=== PATIENT | female | born 1980 | race Caucasian/White ===

== ENCOUNTER 2018-01-12 21:52 | Outpatient (CLI) | payer MEDICAID | END 2018-01-12 21:53 | disposition critical access hospital (66) | LOC: EMS 21:52 | PROVIDERS: ATTEND Surgery | DX: H92.03 Otalgia, bilateral (principal); M25.562 Pain in left knee; M25.511 Pain in right shoulder | CPT/HCPCS: A0425; A0429 ==

== ENCOUNTER 2018-01-12 22:27 | Emergency (ER) | payer MEDICAID ==
[2018-01-12 22:34] VITALS: BP 101/65
[2018-01-13] MEDS ORDERED: BACITRACIN OINT TOP STA (03:12)
--- NOTE | 2018-01-13 20:31 | ED Physician Documentation ---
History of Present Illness - Stated complaint Stated Complaint: ETOH/EAR PAIN - Chief complaint Chief Complaint: General - History obtained from History obtained from: Patient, Friend, EMS - History of Present Illness Timing: Unknown Pain level now: 0 - Additonal information Additional information: polina LEY historian. her chief concerns are 1)bilateral ear pain for which she feels she needs an antibiotic 2) knee pain for which she is requesting an MARII wrap and 3) right eyebrow abrasion. she says they did an xray (of her knee at [facility] (she was there two nights ago and again last night)). she does not recall specific injury. Review of Systems Cardiac: reports: Reviewed and negative Respiratory: reports: Reviewed and negative GI: reports: Reviewed and negative Musculoskeletal: reports: Joint pain PD PAST MEDICAL HISTORY - Past Medical History Past Medical History: No - Past Surgical History Past Surgical History: No - Present Medications Home Medications: Ambulatory Orders Medication Instructions Recorded Confirmed Azithromycin [Zithromax] 250 mg PO DAILY #4 tablet 01/13/18 - Allergies Allergies/Adverse Reactions: Allergies Allergy/AdvReac Type Severity Reaction Status Date / Time buprenorphine HCl * AdvReac Unknown Verified 08/21/14 11:54 [From Suboxone] naloxone HCl * AdvReac Unknown Verified 08/21/14 11:54 [From Suboxone] - Social History Does the pt smoke?: Yes Smoking Status: Current every day smoker Does the pt drink ETOH?: No Does the pt have substance abuse?: No - Immunizations Immunizations are current?: No Immunizations: TDAP >10years/unknown PD ED PE NORMAL - Vitals Vital signs reviewed: Yes - General General: No acute distress, Well developed/nourished, Other (drowsy, repeatedly falls asleep during HPI) - HEENT HEENT: PERRL, EOMI, Ears normal, Moist mucous membranes, Other (superficial abrasion right supraorbit without tenderness, swelling, or erythema) - Neck Neck: No bony TTP - Cardiac Cardiac: RRR, No murmur - Respiratory Respiratory: No respiratory distress, Clear bilaterally - Derm Derm: Normal color, Warm and dry - Extremities Extremities: No deformity, No tenderness to palpate, Normal ROM s pain, No edema Results - Vitals Vitals: Vital Signs - 24 hr 01/12/18 22:30 Temperature 37.0 C Heart Rate 92 Respiratory 16 Rate Blood Pressure 101/65 O2 Saturation 97 Oxygen O2 Source Room air PD MEDICAL DECISION MAKING - ED course Complexity details: reviewed old records (reviewed records that were faxed to me from [facility] regarding ED visits yesterday and previous day. she had unremarkable blood tests and negative test, was held for SW consult pending sobriety on first visit. I do not see the outcome of the SW consult, but she returned the next night and was T+R for knee sprain; no xray was performed. ), re-evaluated patient, considered differential, d/w patient ED course: patient was very drowsy on initial evaluation. reevaluated and she was awake, alert and this is when she was able to provide the chief complaints noted in my HPI. of note, patient was last in [facility] 07/2014 at which time I was her ED physician. at that time she thought both her legs were broken despite no injury and, although initially relieved and reassured that her exam did not suggest any injury, she eventually needed to be removed from ED by police due to refusal to leave despite no medical c/o. On tonights visit, after discharge, patients friend called 911 from ED waiting room, saying that they were being forced to leave despite both of them being . They were eventually taken off premises by police. Departure - Departure Disposition: 01 Home, Self Care Clinical Impression: Left knee sprain Qualifiers: Encounter type: initial encounter Involved ligament of knee: unspecified ligament Qualified Code(s): S83.92XA - Sprain of unspecified site of left knee, initial encounter Condition: Good Instructions: ED Bandage Elastic Wrap, ED Sprain Knee Follow-Up: [facility] [Provider Group] [facility] [Provider Group] Discharge Date/Time: 01/13/18 03:34
== END 2018-01-13 03:34 | disposition home or self-care (01) ==
LOC: EDUNIT# → ED 22:27
DX: S83.92XA Sprain of unspecified site of left knee, initial encounter (principal); X50.1XXA Overexertion from prolonged static or awkward postures, initial encounter; F17.200 Nicotine dependence, unspecified, uncomplicated
CPT/HCPCS: 99282; 99283

== ENCOUNTER 2018-01-13 10:37 | Outpatient (CLI) | payer MEDICAID | END 2018-01-13 10:38 | disposition critical access hospital (66) | LOC: EMS 10:37 | PROVIDERS: ATTEND Surgery | DX: R40.20 Unspecified coma (principal); Z72.89 Other problems related to lifestyle | CPT/HCPCS: A0425; A0429 ==

== ENCOUNTER 2018-01-13 10:55 | Emergency (ER) | payer MEDICAID ==
[2018-01-13] MEDS ORDERED: MULTIVITAMIN 10 ML in SODIUM CHLORIDE 0.9% 1,000 ML IV STA (11:13)
[2018-01-13] MEDS ORDERED: MAGNESIUM SULFATE 2 GRAM 2 GM/50 ML BAG IV STA (11:13)
[2018-01-13] MEDS ORDERED: THIAMINE INJ 100 MG, FOLIC ACID INJ 1 MG in SODIUM CHLORIDE 0.9% 100ML 100 ML IV STA (11:13)
--- NOTE | 2018-01-13 11:16 | ED Physician Documentation ---
PD HPI ALTERED MENTAL STATUS - Stated complaint Stated Complaint: MHE - Chief complaint Chief Complaint: Neuro - History obtained from History obtained from: Patient, EMS - History of Present Illness Timing - onset: Today Timing - duration: Hours Timing - details: Gradual onset, Still present Quality / character: Less responsive Associated symptoms: Cough, Other (ear pain) Contributing factors: Intoxicated, Substance abuse, Known psych illness Basline status: Alert and oriented X 3, Ambulatory, Independent Similar symptoms before: Diagnosis (substance abuse/EOTH) Recently seen: Emergency Dept - Additional information Additional information: 37-year-old homeless female unable to give us any specific history [place] [facility] [place]. They have transported the patient to the emergency department. She does smell heavily of alcohol and answers questions appropriately when she wakes up. She rapidly falls back to sleep. She was seen in the emergency department last night for a knee sprain and was not discharged with medications. She has on her KODY form , recent visits to [place] X 2 in the past 3 days. Review of Systems Unable to obtain: Intoxicated Constitutional: denies: Fever Ears: reports: Ear pain Nose: reports: Rhinorrhea / runny nose, Congestion Throat: denies: Sore throat Cardiac: denies: Chest pain / pressure, Palpitations Respiratory: reports: Cough. denies: Dyspnea GI: denies: Vomiting : denies: Dysuria, Frequency Skin: denies: Rash Musculoskeletal: denies: Neck pain, Back pain, Extremity pain Neurologic: denies: Generalized weakness, Focal weakness, Numbness PD PAST MEDICAL HISTORY - Past Medical History Past Medical History: Yes Other Past Medical History: etoh - Past Surgical History Past Surgical History: No - Present Medications Home Medications: Ambulatory Orders Medication Instructions Recorded Confirmed Azithromycin [Zithromax] 250 mg PO DAILY #4 tablet 01/13/18 - Allergies Allergies/Adverse Reactions: Allergies Allergy/AdvReac Type Severity Reaction Status Date / Time buprenorphine HCl * AdvReac Unknown Verified 08/21/14 11:54 [From Suboxone] naloxone HCl * AdvReac Unknown Verified 08/21/14 11:54 [From Suboxone] - Social History Does the pt smoke?: Yes Smoking Status: Current every day smoker Does the pt drink ETOH?: No Does the pt have substance abuse?: No - Immunizations Immunizations are current?: No Immunizations: TDAP >10years/unknown PD ED PE NORMAL - Vitals Vital signs reviewed: Yes (hypotensive ) - General General: No acute distress, Well developed/nourished, Other (37 y/o female with strong odor of ETOH. arouses to voice and falls asleep easily. ) - HEENT HEENT: PERRL, EOMI, Other (There is an abrasion to the left scalp over the frontal area. Both TM's are mildly inflamed. ) - Neck Neck: Supple, no meningeal sign, No bony TTP - Cardiac Cardiac: RRR, No murmur - Respiratory Respiratory: No respiratory distress, Clear bilaterally - Abdomen Abdomen: Soft, Non tender - Back Back: No CVA TTP, No spinal TTP - Derm Derm: Normal color, Warm and dry, No rash - Extremities Extremities: No deformity, No edema - Neuro Neuro: No motor deficit, No sensory deficit, Normal speech Eye Opening: Spontaneous Motor: Obeys Commands Verbal: Oriented GCS Score: 15 - Psych Psych: Normal mood, Normal affect Results - Vitals Vitals: Vital Signs - 24 hr 01/13/18 01/13/18 01/13/18 10:56 13:26 17:54 Temperature 35.8 C L 37.4 C Heart Rate 76 69 78 Respiratory 16 15 14 Rate Blood Pressure 84/53 L 87/61 L 90/64 O2 Saturation 99 99 01/13/18 20:05 Temperature Heart Rate 96 Respiratory 18 Rate Blood Pressure 101/71 O2 Saturation 96 Oxygen O2 Source Room air - Labs Labs: Laboratory Tests 01/13/18 01/13/18 01/13/18 11:30 11:30 13:17 WBC 7.1 RBC 4.02 L Hgb 13.0 Hct 39.7 MCV 98.7 MCH 32.3 H MCHC 32.7 RDW 15.1 H Plt Count 342 MPV 6.5 L Neut # 3.8 Lymph # 2.7 Randall # 0.4 Eos # 0.0 Baso # 0.0 Absolute Nucleated RBC 0.01 Nucleated RBC % 0.1 Sodium 137 Potassium 2.8 L Chloride 104 Carbon Dioxide 25 Anion Gap 8.0 BUN 11 Creatinine 0.5 Estimated GFR (MDRD) 139 Glucose 79 Calcium 7.8 L Total Bilirubin 0.2 AST 24 ALT 20 Alkaline Phosphatase 49 Total Protein 6.1 L Albumin 3.4 Globulin 2.7 Albumin/Globulin Ratio 1.3 Lipase 21 L Urine Color YELLOW Urine Clarity CLEAR Urine pH 5.5 Ur Specific [place] 1.015 Urine Protein NEGATIVE Urine Glucose (UA) NEGATIVE Urine Ketones NEGATIVE Urine Occult Blood NEGATIVE Urine Nitrite NEGATIVE Urine Bilirubin NEGATIVE Urine Urobilinogen 0.2 (NORMAL) Ur Leukocyte Esterase TRACE H Urine RBC 0-5 Urine WBC 6-10 H Ur Squamous Epith Cells FEW Squamous Urine Bacteria Rare Ur Microscopic Review INDICATED Urine Culture Comments INDICATED Urine HCG, Qual Salicylates < 6.0 Urine Opiates Screen NEGATIVE Ur Oxycodone Screen NEGATIVE Urine Methadone Screen NEGATIVE Ur Propoxyphene Screen NEGATIVE Acetaminophen < 10 L Ur Barbiturates Screen NEGATIVE Ur Tricyclics Screen NEGATIVE Ur Phencyclidine Scrn NEGATIVE Ur Amphetamine Screen NEGATIVE U Methamphetamines Scrn NEGATIVE U Benzodiazepines Scrn NEGATIVE Urine Cocaine Screen NEGATIVE U Cannabinoids Screen POSITIVE H Ethyl Alcohol 278.3 01/13/18 13:17 WBC RBC Hgb Hct MCV MCH MCHC RDW Plt Count MPV Neut # Lymph # Randall # Eos # Baso # Absolute Nucleated RBC Nucleated RBC % Sodium Potassium Chloride Carbon Dioxide Anion Gap BUN Creatinine Estimated GFR (MDRD) Glucose Calcium Total Bilirubin AST ALT Alkaline Phosphatase Total Protein Albumin Globulin Albumin/Globulin Ratio Lipase Urine Color Urine Clarity Urine pH Ur Specific [place] 1.015 Urine Protein Urine Glucose (UA) Urine Ketones Urine Occult Blood Urine Nitrite Urine Bilirubin Urine Urobilinogen Ur Leukocyte Esterase Urine RBC Urine WBC Ur Squamous Epith Cells Urine Bacteria Ur Microscopic Review Urine Culture Comments Urine HCG, Qual NEGATIVE Salicylates Urine Opiates Screen Ur Oxycodone Screen Urine Methadone Screen Ur Propoxyphene Screen Acetaminophen Ur Barbiturates Screen Ur Tricyclics Screen Ur Phencyclidine Scrn Ur Amphetamine Screen U Methamphetamines Scrn U Benzodiazepines Scrn Urine Cocaine Screen U Cannabinoids Screen Ethyl Alcohol - Rads (name of study) CT head without Radiology: Prelim report reviewed (Impression: 1. No acute intracranial abnormality. 2. Mild frontal scalp soft tissue swelling.), EMP read indepedently , See rad report PD MEDICAL DECISION MAKING - ED course Complexity details: reviewed old records, reviewed results, re-evaluated patient , considered differential, d/w patient ED course: 37-year-old homeless female is markedly intoxicated on arrival to the emergency department. She is allowed to sober in the department for 7 hours. She states now that she feels that she is sick she feels she has some vertigo And aches and pains everywhere. On examination she does have otitis and she is administered dexamethasone and azithromycin here in the emergency department. research worker kitchen is not available for evaluation.She is administered a banana bag IV as well. This 37-year-old homeless female has been treated for exposure and intoxication and for minor infection. She has no life-threatening illnesses and does not require further emergency department care. Departure - Departure Disposition: 01 Home, Self Care Clinical Impression: Alcohol intoxication Qualifiers: Complication of substance-induced condition: with unspecified complication Qualified Code(s): F10.929 - Alcohol use, unspecified with intoxication, unspecified Otitis media Qualifiers: Otitis media type: suppurative Chronicity: acute Laterality: bilateral Recurrence: not specified as recurrent Spontaneous tympanic membrane rupture: without spontaneous rupture Qualified Code(s): H66.003 - Acute suppurative otitis media without spontaneous rupture of ear drum, bilateral Instructions: ED Alcohol Intoxication, ED Otitis Media Acute Adult Follow-Up: [facility] [Provider Group] Prescriptions: Azithromycin [Zithromax] 250 mg PO DAILY #4 tablet Discharge Date/Time: 01/13/18 20:42
[2018-01-13 11:39] LABS: BASOPHILS % (AUTO) 0.5 %; EOSINOPHILS % (AUTO) 0.4 %; LYMPHOCYTES # (AUTO) 2.7 10^3/uL (1.5-3.5); LYMPHOCYTES % (AUTO) 38.7 %; MEAN CORPUSCULAR HEMOGLOBIN 32.3 pg (27.0-31.0); MEAN CORPUSCULAR HGB CONC 32.7 g/dL (32.0-36.0); MEAN CORPUSCULAR VOLUME 98.7 fL (81.0-99.0); MEAN PLATELET VOLUME 6.5 fL (7.9-10.8); MONOCYTES # (AUTO) 0.4 10^3/uL (0.0-1.0); MONOCYTES % (AUTO) 6.3 %; NEUTROPHILS # (AUTO) 3.8 10^3/uL (1.5-6.6); NEUTROPHILS % (AUTO) 54.1 %; PLT - PLATELET COUNT 342 10^3/uL (130-450); RED BLOOD COUNT 4.02 10^6/uL (4.20-5.40); RED CELL DISTRIBUTION WIDTH 15.1 % (12.0-15.0); WHITE BLOOD COUNT 7.1 x10^3/uL (4.8-10.8)
[2018-01-13 11:51] LABS: ALBUMIN 3.4 g/dL (3.2-5.5); ALBUMIN/GLOBULIN RATIO 1.3 (1.0-2.2); ALKALINE PHOSPHATASE 49 IU/L (42-121); ALT ALANINE AMINOTRANSFERASE 20 IU/L (10-60); AST ASPARTATE AMINOTRANSFERASE 24 IU/L (10-42); BILIRUBIN,TOTAL 0.2 mg/dL (0.2-1.0); BUN - BLOOD UREA NITROGEN 11 mg/dL (6-20); CALCIUM 7.8 mg/dL (8.5-10.3); CARBON DIOXIDE - CO2 25 mmol/L (21-32); CHLORIDE 104 mmol/L (101-111); CREATININE 0.5 mg/dL (0.4-1.0); GFR - MDRD 139 (>89); GLUCOSE 79 mg/dL (70-100); LIPASE 21 U/L (22-51); SALICYLATE < 6.0 mg/dL; SODIUM 137 mmol/L (135-145); TOTAL PROTEIN 6.1 g/dL (6.7-8.2)
[2018-01-13 11:55] LABS: ACETAMINOPHEN < 10 ug/mL (10-30)
[2018-01-13 13:21] LABS: MUDS CUTOFF CONCENTRATIONS CUTOFF CONC BELOW:
[2018-01-13] MEDS ORDERED: POTASSIUM BICARB 25 MEQ TABLET PO STA ×2 (13:22→18:32)
[2018-01-13 13:27] LABS: BILIRUBIN,URINE NEGATIVE (NEGATIVE); GLUCOSE, URINE (UA) NEGATIVE (NEGATIVE); KETONES,URINE (UA) NEGATIVE (NEGATIVE); LEUKOCYTE ESTERASE, URINE TRACE (NEGATIVE); NITRITE,URINE NEGATIVE (NEGATIVE); OCCULT BLOOD,URINE NEGATIVE (NEGATIVE); PH,URINE 5.5 PH (5.0-7.5); PROTEIN,URINE NEGATIVE (NEGATIVE); UROBILINOGEN,URINE 0.2 (NORMAL) E.U./dL (NORMAL)
[2018-01-13 13:32] LABS: CLARITY,URINE CLEAR (CLEAR)
[2018-01-13 13:47] LABS: AMPHETAMINE SCREEN,URINE NEGATIVE (NEGATIVE); BENZODIAZEPINES SCREEN, URINE NEGATIVE (NEGATIVE); COCAINE SCREEN URINE NEGATIVE (NEGATIVE); METHADONE SCREEN, URINE NEGATIVE (NEGATIVE); METHAMPHETAMINES SCREEN, URINE NEGATIVE (NEGATIVE); OPIATE SCREEN, URINE NEGATIVE (NEGATIVE); OXYCODONE SCREEN, URINE NEGATIVE (NEGATIVE); PROPOXYPHENE SCREEN, URINE NEGATIVE (NEGATIVE); TRICYCLIC ANTIDEPRESSANT,URINE NEGATIVE (NEGATIVE)
[2018-01-13 13:50] LABS: BACTERIA,URINE Rare /HPF (None Seen); RBC,URINE 0-5 /HPF (0-5); SQUAMOUS EPITHELIAL CELL,UR FEW Squamous (<= Few)
[2018-01-13 15:02] LABS: HCG UR QUAL NEGATIVE
--- NOTE | 2018-01-13 15:44 | CT Preliminary Report ---
Exam: CT HEAD W/O IMPRESSION: 1. No acute intracranial abnormality. 2. Mild frontal scalp soft tissue swelling. [facility] SITE ID: [id number]
--- NOTE | 2018-01-13 16:04 | CT Report ---
EXAM: CT HEAD EXAM DATE: 01/13/2018 03:26 PM. CLINICAL HISTORY: Left frontal contusion altered LOC. COMPARISON: None. TECHNIQUE: Multiaxial CT images were obtained from the foramen magnum to the vertex. Reformats: Coron al. IV contrast: None. In accordance with CT protocol optimization, one or more of the following dose reduction techniques w ere utilized for this exam: automated exposure control, adjustment of mA and/or KV based on patient s ize, or use of iterative reconstructive technique. FINDINGS: Parenchyma: No intraparenchymal hemorrhage. No evidence of mass, midline shift, or CT findings of inf arction. Mello-white differentiation is distinct. Extraaxial Spaces: Normal for age. No subdural or epidural collections identified. Ventricles: Normal in size and position. Sinuses and Orbits: Imaged paranasal sinuses, orbits, and mastoids show no significant abnormality. Bones: No evidence of fracture or calvarial defect. Other: Mild frontal scalp soft tissue swelling. IMPRESSION: 1. No acute intracranial abnormality. 2. Mild frontal scalp soft tissue swelling. [facility] Referring Provider Line: [phone] SITE ID: [id number]
[2018-01-13] MEDS ORDERED: AZITHROMYCIN 250 MG TABLET PO STA (18:13)
[2018-01-13] MEDS ORDERED: DEXAMETHASONE 10 MG/ML VIAL PO STA (18:13)
[2018-01-13] MEDS ORDERED: CHERRY SYRUP 10 ML UDC PO ONE (18:27)
[2018-01-13] MEDS ORDERED: cefTRIAXone 1 GM in SODIUM CHLORIDE 0.9% MINIBAG 100 ML IV STA (18:32)
[2018-01-13] MEDS ORDERED: SODIUM CHLORIDE 0.9% 1,000 ML IV ONE (18:32)
[2018-01-13] MEDS ORDERED: KETOROLAC 60 MG/2 ML VIAL IVP STA (18:33)
[2018-01-13 20:06] VITALS: BP 101/71
[2018-01-13] MEDS ORDERED: ONDANSETRON ODT 4 MG TABLET TL STA (20:23)
[2018-01-13] MEDS ORDERED: MECLIZINE 12.5 MG TABLET PO STA (20:23)
== END 2018-01-13 20:42 | disposition home or self-care (01) ==
LOC: EDUNIT# → ED 10:55
DX: F10.129 Alcohol abuse with intoxication, unspecified (principal); H66.003 Acute suppurative otitis media without spontaneous rupture of ear drum, bilateral; Z59.0 Homelessness; F17.200 Nicotine dependence, unspecified, uncomplicated
CPT/HCPCS: 36415; 70450; 80053; 80306; 80307; 80320; 80329; 81001; 81025; 83690; 85025; 87086; 96365; 96366; 96367; 96368; 96375; 99283; 99284; A9270; J3411; Q0162; 81003